=== PATIENT | male | born 1995 | race Two or more races ===

== ENCOUNTER → 2019-11-13 | Emergency (ER) | payer OTHER ==
[~2019-11-13] VITALS: Ht 172.7 cm; Wt 82.1 kg
[~2019-11-13] MED LIST: ABILIFY30 MG; ATIVAN1 M1
== END | disposition left against medical advice (07) ==
LOC: ER 01:00
DX: R44.2 Other hallucinations (principal); F19.980 Other psychoactive substance use, unspecified with psychoactive substance-induced anxiety disorder